=== PATIENT | male | born 2000 | race Caucasian/White ===

== ENCOUNTER 2022-04-17 10:33 | Inpatient (IN) ==
[2022-04-17 11:44] LABS: Urine Appearance Clear; Urine Bilirubin Negative (Negative); Urine Blood Negative (Negative); Urine Color Yellow; Urine Glucose Negative (Negative); Urine Ketones Negative (Negative); Urine Nitrite Negative (Negative); Urine Protein Negative (Negative); Urine Urobilinogen Negative (Negative)
[2022-04-17 11:48] LABS: ABS Eosinophils 0.2 10^3/ul (0-0.6); ABS Lymphocytes 1.2 10^3/ul (1.0-4.8); ABS Monocytes 0.3 10^3/ul (0-0.8); ABS Neutrophils 2.4 10^3/ul (1.5-7.7); Eosinophil % 4.7 %; Hematocrit 47 % (42-52); Hemoglobin 16.3 g/dL (14.0-18.0); Lymphocyte % 28.4 %; Mean Corpuscular HGB Conc 35 g/dL (31-36); Mean Corpuscular Hemoglobin 30 pg (27-31); Mean Corpuscular Volume 88 fL (80-94); Mean Platelet Volume 8.2 fL (7.4-10.4); Nucleated Red Blood Cells % 0.1; Platelet Count 231 10^3/uL (150-450); Red Blood Count 5.37 10^6 /uL (4.18-5.48); Red Cell Distribution Width 14 % (10-15); White Blood Count 4.1 10^3/uL (3.5-10.8)
[2022-04-17 12:13] LABS: Urine Benzodiazepine Screen None Detected (None Detect); Urine Cannabinoids Screen None Detected (None Detect); Urine Opiates Screen None Detected (None Detect)
[2022-04-17 12:20] LABS: ALT 55 U/L (7-52); AST 28 U/L (13-39); Acetaminophen < 15 mcg/mL; Albumin 4.6 g/dL (3.2-5.2); Albumin/Globulin Ratio 2.3 (1-3); Alcohol, S < 13 mg/dL (<13); Alkaline Phosphatase 88 U/L (35-149); Anion Gap 3 mmol/L (2-11); Blood Urea Nitrogen 18 mg/dL (6-24); CO2 Carbon Dioxide 29 mmol/L (22-32); Calcium 9.6 mg/dL (8.6-10.3); Chloride 106 mmol/L (101-111); Creatinine, Serum 0.89 mg/dL (0.67-1.17); Glucose 102 mg/dL (70-100); Potassium 4.3 mmol/L (3.5-5.0); Salicylate < 2.50 mg/dL (<30); Sodium 138 mmol/L (135-145); Total Protein 6.6 g/dL (6.4-8.9)
[2022-04-17 12:33] LABS: TSH Ultra Thyroid Stim Horm 3.34 mcIU/mL (0.34-5.60)
[2022-04-17] MEDS ORDERED: Al Hydrox/Mg Hydrox/Simet LIQ 30 ML UDC PO PRN (16:58)
[2022-04-18] MEDS: Vitamin THERAPEUTIC TAB PO SCH (08:46)
[2022-04-18 09:00] LABS: HDL Cholesterol 68.2 mg/dL
[2022-04-18 09:03] LABS: C Reactive Protein 1.17 mg/L (<8.01)
[2022-04-18 13:25] LABS: Vitamin D Total 25(OH) 23.2 ng/mL (20-50)
[2022-04-18] MEDS ORDERED: Cyanocobalamin INJ 1,000 MCG/ML VIAL 1 ML VIAL IM ONE (14:07)
[2022-04-19] MEDS: Vitamin THERAPEUTIC TAB PO SCH (08:17)
[2022-04-20] MEDS: Vitamin THERAPEUTIC TAB PO SCH (09:43)
[2022-04-21 07:25] VITALS: BP 123/72
[2022-04-21] MEDS: Vitamin THERAPEUTIC TAB PO SCH (08:22)
== END 2022-04-21 13:51 | disposition home or self-care (01) | DRG 885 ==
LOC: ED 10:33 → EDHOLD 17:15 → BSU 18:18
PROVIDERS: ADMIT Psychiatry & Neurology Psychiatry; ATTEND Psychiatry & Neurology Psychiatry